=== PATIENT | male | born 1995 | race Caucasian/White ===

== ENCOUNTER 2018-11-09 10:24 | Outpatient (RCR) | payer BC ==
[~2018-11-09 10:24] MED LIST: CEFD300C3 PO; TRAM50TA2 PO
== END 2019-02-07 | disposition home or self-care (01) ==
LOC: LAB 10:24
PROVIDERS: ATTEND Family Medicine
DX: Z30.8 Encounter for other contraceptive management (principal)
CPT/HCPCS: 89321